=== PATIENT | male | born 2000 | race Caucasian/White ===

== ENCOUNTER 2023-05-04 14:32 | Emergency (ER) | payer OTHER, SELFPAY ==
[2023-05-04 15:28] VITALS: BP 134/90; PULSE 94; RESP 18; TEMP 37.3; O2SAT 98; BMI 24.6
--- NOTE | 2023-05-04 15:28 | ED.GENADULT ---
HPI - General Adult General Chief complaint: General Medical Stated complaint: fatigue / low heart rate Time Seen by Provider: 05/04/23 18:16 Source: patient Mode of arrival: ambulatory Limitations: no limitations History of Present Illness HPI narrative: Patient with history of anxiety complaining of dizziness palpitations off and on feels foggy in his mind had this symptoms going on for a while but now getting worse. Patient's sister has bipolar disorder. Denies any SI no hallucination or delusion Related Data Previous Rx's Medication Instructions Recorded fluoxetine 10 mg capsule (Prozac) 10 mg PO DAILY #30 caps 05/04/23 hydroxyzine HCl 50 mg tablet 50 mg PO BID PRN anxiety #60 tabs 05/04/23 trazodone 100 mg tablet 100 mg PO BEDTIME PRN sleep #30 05/04/23 tabs Allergies Allergy/AdvReac Type Severity Reaction Status Date / Time No Known Allergies Allergy Verified 05/04/23 15:28 Review of Systems Review of Systems: Yes all other systems are reviewed and are negative FOR[facility]LY [facility] Social History Social History Smoked in Last 30 Days: No Use of substances other than those prescribed or required for medical reasons: No Advance Directives: No Advance Directives Information Provided: No Physical Exam ED Vital Signs: Vital Signs - 24 hr 05/04/23 15:28 Temperature 99.2 F Pulse Rate 94 Respiratory Rate 18 Blood Pressure 134/90 H Pulse Oximetry 98 Oxygen Delivery Method Room Air BMI result Body Mass Index 24.6 Appearance: Alert. Oriented X3. No acute distress. Eyes: PERRLA, No Nystagmus ENT: Pharynx normal. Oral Mucosa moist Neck: Normal inspection. Neck supple. CVS: Normal heart rate and rhythm. Pulses normal. Respiratory: No respiratory distress. Equal air entry bilateral, no wheezing/rales/rhonchi Abdomen: Soft and nontender. Bowel sounds are present, no mass palpable, no CVA tenderness Skin: Skin warm and dry. Normal skin color. Normal skin turgor. Extremities: No lower extremity edema. No calf tenderness psych mood stable denies any SI no hallucination/ delusion Neuro: Oriented X 3. No motor deficit. No sensory deficit.No cerebellar signs , cranial nerves II-XII intact Course Course Course Narrative: This is an RME: Additional HPI, ROS, PE not included below will be deferred to primary provider. This is a 48-gcpb-ywm-male, asthma and anxiety, presenting to the emergency department with a complaints of fatigue, low heart rate, brain fogginess x 1 week. Lives in [place], has a ?spider bite on right side of body. VSS. Plan: Labs, TSH, monospot Medications Administered Discontinued Medications Generic Name Dose Route Start Last Admin Trade Name Freq PRN Reason Stop Dose Admin Alprazolam 0.5 mg 05/04/23 18:30 05/04/23 18:43 Alprazolam 0.5 Mg Tablet PO 05/04/23 18:31 0.5 mg ONCE ONE Administration Medical Decision Making Medical Decision Making [facility] Narrative: Patient advised to follow-up with psychiatrist will give a course of prozac and hydroxyzine and trazodone for sleep Differential Diagnosis Differential Diagnoses: The differential diagnosis associated with the presentation includes Major depression/bipolar/ADHD Lab Data 05/04/23 15:51 05/04/23 15:51 Labs: Lab Results 05/04/23 05/04/23 05/04/23 Range/Units 15:51 15:51 15:51 WBC (4.8-10.8) X10*3/uL RBC (4.60-5.80) X10*6/uL Hgb (14.0-18.0) g/dl Hct (42.0-52.0) % MCV (80.0-98.0) fL MCH (27.0-33.0) pg MCHC (31.0-36.0) g/dl RDW (11.0-16.0) % Plt Count (160-400) X10*3/uL MPV (9.4-12.4) fL Immature Gran % (Auto) (0.0-0.4) % Neut % (Auto) (45-73) % Lymph % (Auto) (20-40) % Wilcox % (Auto) (2-11) % Eos % (Auto) (0-4) % Baso % (Auto) (0-2) % Lymph # (Auto) (1.2-4.9) X10*3/uL Wilcox # (Auto) (0.1-1.2) X10*3/uL Eos # (Auto) (0.0-0.4) X10*3/uL Baso # (Auto) (0.0-0.2) X10*3/uL Abs Immat Gran (auto) (0.00-0.03) X10*3/uL Absolute Neuts (auto) (2.0-8.3) x10*3/uL Absolute Nucleated RBC (0.0-0.012) X10*3/uL Nucleated RBC % (auto) (0.0-0.2) /100WBC Sodium 139 (135-145) mmol/L Potassium 4.1 (3.3-5.1) mmol/L Chloride 104 (96-108) mmol/L Carbon Dioxide 25 (22-29) mmol/L Anion Gap 14 (12-20) BUN 11 (9-16) mg/dL Creatinine 0.78 (0.5-1.4) mg/dL Estim Creat Clear Calc 144.9 Estimated GFR > 60 Random Glucose 116 H (60-115) mg/dL Calcium 10.7 H (8.4-10.2) mg/dL Total Bilirubin 0.6 (0.0-1.0) mg/dL Direct Bilirubin 0.3 (0.0-0.5) mg/dL AST 21 (5-37) U/L ALT 27 (0-40) U/L Alkaline Phosphatase 83 (39-117) U/L Total Protein 8.4 H (6.5-8.0) g/dL Albumin 5.0 (3.5-5.0) g/dL TSH 1.36 (0.32-4.0) uIU/mL Lyme Screen IgG & IgM <0.90 index Monoscreen Negative (Negative) 05/04/23 Range/Units 15:51 WBC 7.3 (4.8-10.8) X10*3/uL RBC 5.78 (4.60-5.80) X10*6/uL Hgb 16.8 (14.0-18.0) g/dl Hct 50.2 (42.0-52.0) % MCV 86.9 (80.0-98.0) fL MCH 29.1 (27.0-33.0) pg MCHC 33.5 (31.0-36.0) g/dl RDW 13.3 (11.0-16.0) % Plt Count 318 (160-400) X10*3/uL MPV 9.9 (9.4-12.4) fL Immature Gran % (Auto) 0.3 (0.0-0.4) % Neut % (Auto) 71.4 (45-73) % Lymph % (Auto) 20.6 (20-40) % Wilcox % (Auto) 6.1 (2-11) % Eos % (Auto) 0.8 (0-4) % Baso % (Auto) 0.8 (0-2) % Lymph # (Auto) 1.5 (1.2-4.9) X10*3/uL Wilcox # (Auto) 0.4 (0.1-1.2) X10*3/uL Eos # (Auto) 0.1 (0.0-0.4) X10*3/uL Baso # (Auto) 0.1 (0.0-0.2) X10*3/uL Abs Immat Gran (auto) 0.02 (0.00-0.03) X10*3/uL Absolute Neuts (auto) 5.2 (2.0-8.3) x10*3/uL Absolute Nucleated RBC 0.000 (0.0-0.012) X10*3/uL Nucleated RBC % (auto) 0.0 (0.0-0.2) /100WBC Sodium (135-145) mmol/L Potassium (3.3-5.1) mmol/L Chloride (96-108) mmol/L Carbon Dioxide (22-29) mmol/L Anion Gap (12-20) BUN (9-16) mg/dL Creatinine (0.5-1.4) mg/dL Estim Creat Clear Calc Estimated GFR Random Glucose (60-115) mg/dL Calcium (8.4-10.2) mg/dL Total Bilirubin (0.0-1.0) mg/dL Direct Bilirubin (0.0-0.5) mg/dL AST (5-37) U/L ALT (0-40) U/L Alkaline Phosphatase (39-117) U/L Total Protein (6.5-8.0) g/dL Albumin (3.5-5.0) g/dL TSH (0.32-4.0) uIU/mL Lyme Screen IgG & IgM index Monoscreen (Negative) Discharge Plan Discharge Clinical Impression: Anxiety disorder Patient Disposition: Home, Self-Care Instructions: Generalized Anxiety Disorder (ED) Additional Instructions: Take medication as prescribed and follow-up with your PCP for further evaluation including psych evaluation Prescriptions: New fluoxetine [Prozac] 10 mg capsule 10 mg PO DAILY Qty: 30 0RF trazodone 100 mg tablet 100 mg PO BEDTIME PRN (Reason: sleep) Qty: 30 0RF hydroxyzine HCl 50 mg tablet 50 mg PO BID PRN (Reason: anxiety) Qty: 60 0RF Referrals: Kris Meeks MD [Physician] - 1 week Interventions: ED Discharge Assessment Last Done: 05/04/23 18:55 Discharge Date/Time: 05/04/23 18:55
[2023-05-04 15:55] LABS: MANUAL DIFF FLAG NO
[2023-05-04 16:01] LABS: Basophils Absolute Auto 0.1 X10*3/uL (0.0-0.2); Basophils Percent Auto 0.8 % (0-2); Eosinophils Absolute Auto 0.1 X10*3/uL (0.0-0.4); Eosinophils Percent Auto 0.8 % (0-4); Hematocrit 50.2 % (42.0-52.0); Hemoglobin 16.8 g/dl (14.0-18.0); Imm Gran Abs Auto 0.02 X10*3/uL (0.00-0.03); Imm Gran Pct Auto 0.3 % (0.0-0.4); Lymphocytes Absolute Auto 1.5 X10*3/uL (1.2-4.9); Lymphocytes Percent Auto 20.6 % (20-40); Mean Corpuscular HGB Conc 33.5 g/dl (31.0-36.0); Mean Corpuscular Hemoglobin 29.1 pg (27.0-33.0); Mean Corpuscular Volume 86.9 fL (80.0-98.0); Mean Platelet Volume 9.9 fL (9.4-12.4); Monocytes Absolute Auto 0.4 X10*3/uL (0.1-1.2); Monocytes Percent Auto 6.1 % (2-11); Neutrophils Absolute Auto 5.2 x10*3/uL (2.0-8.3); Neutrophils Percent Auto 71.4 % (45-73); Platelet Count 318 X10*3/uL (160-400); Red Blood Count 5.78 X10*6/uL (4.60-5.80); Red Cell Distribution Width 13.3 % (11.0-16.0); White Blood Count 7.3 X10*3/uL (4.8-10.8)
[2023-05-04 16:11] LABS: Monotest Negative (Negative)
[2023-05-04 16:26] LABS: Alanine Aminotransferase 27 U/L (0-40); Alkaline Phosphatase 83 U/L (39-117); Anion Gap 14 (12-20); Aspartate Amino Transferase 21 U/L (5-37); Bilirubin Direct 0.3 mg/dL (0.0-0.5); Bilirubin Total 0.6 mg/dL (0.0-1.0); Blood Urea Nitrogen 11 mg/dL (9-16); Calcium 10.7 mg/dL (8.4-10.2); Carbon Dioxide 25 mmol/L (22-29); Chloride 104 mmol/L (96-108); Creatinine Clr Calc Pharmacy 144.9; Estimated Glomerular Filt Rate > 60; Glucose Random 116 mg/dL (60-115); Potassium 4.1 mmol/L (3.3-5.1); Sodium 139 mmol/L (135-145); Total Protein 8.4 g/dL (6.5-8.0)
[2023-05-04 16:41] LABS: TSH reflex Free T4 1.36 uIU/mL (0.32-4.0)
[2023-05-04 18:18] VITALS: BP 150/90; PULSE 94; RESP 16; O2SAT 98
--- OUTSIDE RECORDS SUMMARY | 2023-05-04 18:20 | XMS_ITS | Continuity of Care Document ---
Author Name Unknown Organization [facility] Address [address] [place] [id number]- Care Team Providers Care Blower Room Attendant Name Role Phone Not on Staff, PCP Primary Care Physician Unavail able Encounter [facility] [place] Date(s): 11/21/20 - 11/22/[address] [address]- Encounter Diagnosis Headache, common migraine(Final) - 11/21/20 Discharge Disposition: A-D/C Home Attending Physician: Dallas Aldridge MD Admitting Physician: Dallas Aldridge MD Referring Physician: Not on Staff, Referring MD Allergies, Adverse Reactions, Alerts Substance Reaction Severity Status NKA Active Medications Acetaminophen Tablet 650 mg, Tablet, By Mouth, Once, STAT, 11/21/20 18:08:00 EST, Stop date 11/21/20 18:08:00 EST Start Date: 11/21/20 Stop Date: 11/21/20 Status: Completed Albuterol 0 Refills, Maintenance Start Date: 10/10/12 Status: Ordered amoxicillin 500 mg oral tablet 2 tablet = 1,000 mg, By Mouth, 2 times a day, # 28 tablet, 0 Refills, Maintenance, Tablet Start Date: 04/19/10 Stop Date: 04/26/10 Status: Ordered Cortisporin Otic 1%-0.35%-97834 u/ml solution 2 drops, Ears, Both, 4 times a day, # 10 mL, 0 Refills, Maintenance, Solution Start Date: 04/19/10 Stop Date: 04/26/10 Status: Ordered Crutches Crutches, See Instructions, # 1 units, Refills 0, Tot. Refills 0, Maintenance, Crutches, 10/10/12 20:42:05 Start Date: 10/10/12 Status: Ordered ibuprofen 400 mg oral tablet 400 mg, 1, tablet, By Mouth, Every 6 hours, PRN, # 30 tablet, Refills 0, Tot. Refills 0, Maintenance, Pain , Moderate, 01/28/19 19:14:06 EDT, Print Requisition Start Date: 01/28/19 Status: Ordered Motrin Tablet 400 mg, Tablet, By Mouth, Once, STAT, 11/21/20 18:08:00 EST, Stop date 11/21/20 18:08:00 EST Start Date: 11/21/20 Stop Date: 11/21/20 Status: Completed Symbicort 160mcg/4.5mcg Inhaler 2 puffs, Inhalation, 2 times a day, # 10.2 Gm, 0 Refills, Maintenance, Aerosol Start Date: 10/10/12 Status: Ordered Problem List Condition Effective Dates Status Health Status Inform ant Ocular migraine(Confirmed) Active Vital Signs Most recent to oldest [Reference Range]: 1 2 3 4 Height 173 cm (11/21/20 10:44 PM) 173 cm (11/21/20 8:41 PM) 173 cm (11/21/20 3:38 PM) Weight 64.5 kg (11/21/20 10:44 PM) 64.5 kg (11/21/20 8:41 PM) 64.5 kg (11/21/20 3:38 PM) Oxygen Saturation [94-100 %] 99 % (11/21/20 10:44 PM) 100 % (11/21/20 8:41 PM) 100 % (11/21/20 6:08 PM) Pulse Rate [55-90 bpm] 85 bpm (11/21/20 10:44 PM) 100 bpm *H* (11/21/20 8:41 PM) 106 bpm *H* (11/21/20 6:08 PM) Body Mass Index [18.5-24.99] 21.55 (11/21/20 10:44 PM) 21.55 (11/21/20 8:41 PM) 21.55 (11/21/20 3:38 PM) Blood Pressure [90-138/55-84 mm Hg] 126/71mm Hg (11/21/20 10:44 PM) 128/71mm Hg (11/21/20 8:41 PM) 147/80mm Hg *H* (11/21/20 6:08 PM) Respiratory Rate [16-30 br/min] 18 br/min (11/21/20 10:44 PM) 18 br/min (11/21/20 8:41 PM) 20 br/min (11/21/20 7:09 PM) 20 br/min (11/21/20 7:09 PM) Temperature [96.8-100.4 DegF] 97.8 DegF (11/21/20 10:44 PM) 97.9 DegF (11/21/20 8:41 PM) 98.1 DegF (11/21/20 6:08 PM) Mode of Delivery (Oxygen) Room air (11/21/20 10:44 PM) Room air (11/21/20 8:41 PM) Room air (11/21/20 6:08 PM) Blood pressure sites Arm, right (11/21/20 10:44 PM) Arm, left (11/21/20 8:41 PM) Arm, right (11/21/20 6:08 PM) Temperature Route Oral (11/21/20 10:44 PM) Oral (11/21/20 8:41 PM) Oral (11/21/20 6:08 PM) Dry Weight 64.5 kg (11/21/20 10:44 PM) 64.5 kg (11/21/20 8:41 PM) 64.5 kg (11/21/20 3:38 PM) Weight Obtained Via Patient/family stated (11/21/20 3:38 PM) Dry Weight Obtained Via Patient/family stated (11/21/20 3:38 PM) Social History Social History Type Response Smoking Status Never smoker; Tobacc o user in household: No entered on: 06/17/18 Sex
--- OUTSIDE RECORDS SUMMARY | 2023-05-04 18:20 | XMS_ITS | Continuity of Care Document ---
Author Name Unknown Organization [facility] Address [address] [place] [address]- Care Team Providers Care Regional Ehs Manager Name Role Phone Shaniqua STEELE, Higinio Primary Care Physician [place] [facility] [place] - [place]/22 [facility] [address] [place], [place] [address] Allergies, Adverse Reactions, Alerts No Known Allergies Immunizations Given and Recorded Vaccine Date Status Refusal Reason SARS-CoV-2 (COVID-19) mRNA-1967 vaccine 1 08/12/21 Recorded 1Result Comment: Booster Medications Albuterol 0 Refills, Maintenance Start Date: 10/10/12 Status: Ordered amoxicillin 500 mg oral tablet 2 tablet = 1,000 mg, By Mouth, 2 times a day, # 28 tablet, 0 Refills, Maintenance, Tablet Start Date: 04/19/10 Stop Date: 04/26/10 Status: Ordered Cortisporin Otic 1%-0.35%-29364 u/ml solution 2 drops, Ears, Both, 4 times a day, # 10 mL, 0 Refills, Maintenance, Solution Start Date: 04/19/10 Stop Date: 04/26/10 Status: Ordered Crutches Crutches, See Instructions, # 1 units, Refills 0, Tot. Refills 0, Maintenance, Crutches, 10/10/12 20:42:05 Start Date: 10/10/12 Status: Ordered fluticasone 50 mcg/inh nasal spray Daily, 0 Refills, Maintenance, 01/27/22 9:32:00 EDT, Partial fill upon patient request if the prescription is for a schedule II opioid drug. Start Date: 01/27/22 Status: Ordered hydrOXYzine hydrochloride 25 mg oral tablet 0 Refills, Maintenance, 01/27/22 9:31:00 EDT, Partial fill upon patient request if the prescriptionis for a schedule II opioid drug. Start Date: 01/27/22 Status: Ordered ibuprofen 400 mg oral tablet 400 mg, 1, tablet, By Mouth, Every 6 hours, PRN, # 30 tablet, Refills 0, Tot. Refills 0, Maintenance, Pain , Moderate, 01/28/19 19:14:06 EDT, Print Requisition Start Date: 01/28/19 Status: Ordered loratadine 10 mg oral tablet 10 mg, 1, tablet, By Mouth, Daily, Refills 0, Maintenance, 01/27/22 9:32:00 EDT, Partial fill upon patient request if the prescription is for a schedule II opioid drug. Start Date: 01/27/22 Status: Ordered naproxen 375 mg oral tablet Refills 0, Maintenance, 01/27/22 9:31:00 EDT, Partial fill upon patient request if the prescriptionis for a schedule II opioid drug. Start Date: 01/27/22 Status: Ordered olanzapine 10 mg oral tablet Refills 0, Maintenance, 01/27/22 9:31:00 EDT, Partial fill upon patient request if the prescriptionis for a schedule II opioid drug. Start Date: 01/27/22 Status: Ordered ProAir HFA Inhalation, Every 6 hours, 0 Refills, Maintenance, 01/27/22 9:32:00 EDT, Partial fill upon patient request if the prescription is for a schedule II opioid drug. Start Date: 01/27/22 Status: Ordered QUEtiapine 25 mg oral tablet Refills 0, Maintenance, 01/27/22 9:31:00 EDT, Partial fill upon patient request if the prescriptionis for a schedule II opioid drug. Start Date: 01/27/22 Status: Ordered risperiDONE 1 mg oral tablet TAKE 1 TABLET BY MOUTH AT BEDTIME Start Date: 01/27/22 Status: Ordered sertraline 50 mg oral tablet TAKE 1 TABLET BY MOUTH EVERY DAY Start Date: 01/27/22 Status: Ordered Symbicort 160mcg/4.5mcg Inhaler 2 puffs, Inhalation, 2 times a day, # 10.2 Gm, 0 Refills, Maintenance, Aerosol Start Date: 10/10/12 Status: Ordered Symbicort 160mcg/4.5mcg Inhaler 2, puffs, Inhalation, 2 times a day, Refills 0, Maintenance, 01/27/22 9:32:00 EDT Start Date: 01/27/22 Status: Ordered traZODone 50 mg oral tablet TAKE 1 TABLET BY MOUTH AT BEDTIME Start Date: 01/27/22 Status: Ordered Problem List Condition Effective Dates Status Health Status Inform ant Ocular migraine(Confirmed) Active Social History Social History Type Response Smoking Status Never smoker; Tobacc o user in household: No entered on: 06/17/18 Sex
--- OUTSIDE RECORDS SUMMARY | 2023-05-04 18:20 | XMS_ITS | Continuity of Care Document ---
Author Name Unknown Organization [facility] Address [address] [place] [address]- Care Team Providers Care Gas Plumber Name Role Phone Higinio Mcgovern MD Primary Care Physician [phone] Encounter [facility] [place] Date(s): 06/26/22 - 07/03/22 [facility] [address] [place], [place] [address] Encounter Diagnosis Generalized anxiety disorder(Discharge Diagnosis) - 06/26/22 Depression(Discharge Diagnosis) - 06/26/22 Ocular migraine(Discharge Diagnosis) - 06/26/22 Asthma(Discharge Diagnosis) - 06/30/22 Attending Physician: Pasha Martinez Allergies, Adverse Reactions, Alerts No Known Allergies Immunizations Given and Recorded Vaccine Date Status Refusal Reason SARS-CoV-2 (COVID-19) mRNA-1273 vaccine 1 08/12/21 Recorded SARS-CoV-2 (COVID-19) mRNA-1273 vaccine 01/24/21 R ecorded SARS-CoV-2 (COVID-19) mRNA-1273 vaccine 12/27/20 R ecorded Meningococcal Conjugate Vaccine 08/10/18 Recorded Meningococcal Conjugate Vaccine 05/23/14 Recorded Human Papillomavirus Vaccine 01/23/16 Recorded Human Papillomavirus Vaccine 09/19/15 Recorded Human Papillomavirus Vaccine 07/02/15 Recorded influenza virus vaccine, inactivated 05/23/14 Angus rded influenza virus vaccine, inactivated 06/17/10 Angus rded influenza virus vaccine, inactivated 06/04/09 Angus rded influenza virus vaccine, inactivated 07/10/08 Angus rded influenza virus vaccine, inactivated 07/23/07 Angus rded influenza virus vaccine, inactivated 07/08/06 Angus rded influenza virus vaccine, inactivated 06/26/05 Angus rded Varicella Virus Vaccine 04/11/13 Recorded Varicella Virus Vaccine 11/10/02 Recorded tetanus/diphtheria/pertussis, acel(Tdap) 04/11/13 Recorded Poliovirus Vaccine, Inactivated 12/30/05 Recorded Poliovirus Vaccine, Inactivated 09/21/02 Recorded Poliovirus Vaccine, Inactivated 03/03/02 Recorded Poliovirus Vaccine, Inactivated 01/05/02 Recorded Measles/Mumps/Rubella Virus Vaccine 12/30/05 Recor ded Measles/Mumps/Rubella Virus Vaccine 03/15/03 Recor ded diphtheria/tetanus/pertussis, acel(DTaP) 12/30/05 Recorded diphtheria/tetanus/pertussis, acel(DTaP) 03/15/03 Recorded diphtheria/tetanus/pertussis, acel(DTaP) 05/04/02 Recorded diphtheria/tetanus/pertussis, acel(DTaP) 03/03/02 Recorded diphtheria/tetanus/pertussis, acel(DTaP) 01/05/02 Recorded hepatitis B pediatric vaccine 09/21/02 Recorded hepatitis B pediatric vaccine 01 Recorded hepatitis B pediatric vaccine 01 Recorded 1Result Comment: Booster Medications fluticasone 50 mcg/inh nasal spray Daily, 0 Refills, Maintenance, 01/27/22 9:32:00 EDT, Partial fill upon patient request if the prescription is for a schedule II opioid drug. Start Date: 01/27/22 Status: Ordered loratadine 10 mg oral tablet [...] opioid drug. Start Date: 01/27/22 Status: Ordered Symbicort 160mcg/4.5mcg Inhaler 2, puffs, Inhalation, 2 times a day, Refills 0, Maintenance, 01/27/22 9:32:00 EDT Start Date: 01/27/22 Status: Ordered Problem List Condition Confirmation Course Effective Dates Status Health St atus Informant Asthma Confirmed Active Depression Confirmed Active Generalized anxiety disorder Confirmed Active Ocular migraine Confirmed Active Diagnosis Diagnosis Type Effective Dates Health Status Clinical Service Informant Generalized anxiety disorder Discharge Diagnosis 06/26/22 Depression Discharge Diagnosis 06/26/22 Ocular migraine Discharge Diagnosis 06/26/22 Asthma Discharge Diagnosis 06/30/22 Procedures Procedure Date Related Diagnosis Body Site Status No prior surgical history Completed Vital Signs Most recent to oldest [Reference Range]: 1 Height 172.5 cm (06/26/22 9:08 AM) Weight 77.1 kg (06/26/22 9:08 AM) Oxygen Saturation [94-100 %] 97 % (06/26/22 9:08 AM) Pulse Rate [55-90 bpm] 85 bpm (06/26/22 9:08 AM) Body Mass Index [18.5-24.99 kg/m2] 25.91 kg/m2 *H* (06/26/22 9:08 AM) Blood Pressure [90-138/55-84 mm Hg] 132/ 74mm Hg (06/26/22 9:08 AM) Respiratory Rate [16-30 br/min] 18 br/mi n (06/26/22 9:08 AM) Temperature [96.8-100.4 DegF] 98.3 DegF (06/26/22 9:08 AM) Mode of Delivery (Oxygen) Room air (06/26/22 9:08 AM) Blood pressure sites Arm, left (06/26/22 9:08 AM) Temperature Route Temporal (06/26/22 9:08 AM) Weight Obtained Via Standing scale (06/26/22 9:08 AM) Social History Social History Type Response Smoking Status Never smoker; Tobacc o user in household: No entered on: 06/17/18 Sex Patient Care team information Personnel Name: Higinio Mcgovern MD Address: Address: [address] [place], [place] [address]
--- OUTSIDE RECORDS SUMMARY | 2023-05-04 18:20 | XMS_ITS | Continuity of Care Document ---
Author Name Unknown Organization [facility] Address [address] [place] [address]- Care Team Providers Care Senior Database Engineer Name Role Phone Higinio Mcgovern MD Primary Care Physician Encounter [facility] Date(s): 09/04/22 - 09/11/22 [facility] [address] [place], [place] [address] Encounter Diagnosis Asthma(Discharge Diagnosis) - 09/06/22 History of depression(Discharge Diagnosis) - 09/06/22 Attending Physician: Higinio Mcgovern MD Allergies, Adverse Reactions, Alerts No Known Allergies [...] 2, puffs, Inhalation, 2 times a day, # 3 each, Refills 2, Tot. Refills 2, Maintenance, 09/04/22 11:10:00 EST, Inhaler, Route to Pharmacy Electronically, [id number], [facility]/pharmacy #[id number], 172.5, cm, 09/04/22 10:57:00 EST, Height... Start Date: 09/04/22 Status: Ordered tiotropium 2.5 mcg/inh inhalation aerosol 2 puffs, Inhalation, Daily, # 4 Gm, 1 Refills, Maintenance, 09/04/22 11:10:00 EST, Aerosol, [id number], Partial fill upon patient request if the prescription is for a schedule II opioid drug., 172.5, cm, 09/04/22 10:57:00 EST, Height, 64.5, kg... Start Date: 09/04/22 Status: Ordered Problem List Condition Confirmation Course Effective Dates Status Health St [facility] Informant Asthma Confirmed Active Generalized anxiety disorder Confirmed Active History of depression Confirmed Active Ocular migraine Confirmed Active Diagnosis Diagnosis Type Effective Dates Health Status Clinical Service Informant Asthma Discharge Diagnosis 09/06/22 History of depression Discharge Diagnosis 09/06/22 Vital Signs Most recent to oldest [Reference Range]: 1 Height 172.5 cm (09/04/22 10:57 AM) Weight 75.7 kg (09/04/22 10:57 AM) Oxygen Saturation [94-100 %] 97 % (09/04/22 10:57 AM) Pulse Rate [55-90 bpm] 88 bpm (09/04/22 10:57 AM) Body Mass Index [18.5-24.99 kg/m2] 25.44 kg/m2 *H* (09/04/22 10:57 AM) Blood Pressure [90-138/55-84 mm Hg] 112/ 74mm Hg (09/04/22 10:57 AM) Blood pressure sites Arm, left (09/04/22 10:57 AM) Social History Social History Type Response Smoking Status Never smoker; Tobacc o user in household: No entered on: 06/17/18 Sex Note * Leonarda Wiseman: PERFORM, SIGN, VERIFY Event Display: Patient Education/Instruction Authored Date: [id number] [facility] *[facility] Clinical Summary Name WILL RUGGIERO Age 21 Years 2000 PCP Higinio Mcgovern MD PCP Visit Date 09/04/2022 10:40:00 Additional Instructions: Scheduled Appointments?? Future Appointments ?No Future Appointments Scheduled Follow-Up Instructions ?? Diagnosis Medications: Please continue your medications until treatment is completed or stopped by your provider. Discuss any questions related to medications with your provider. New Medications [facility]/pharmacy #[id number], [address], [place] [phone], [phone] Tiotropium (tiotropium 2.5 mcg/inh inhalation aerosol) 2 puff(s) Inhalation Daily. Refills: 1. Next Dose: Medications to Continue Taking That Have Changed [id number], [address], [place] [id number], [phone] - Budesonide-Formoterol (Symbicort 160mcg/4.5mcg Inhaler) 2 puff(s) Inhalation twice a day. Refills: 2. Next Dose: Medications to Continue with No Changes These medications were not printed or sent to your pharmacy Albuterol (ProAir HFA) Inhalation every 6 hours. Next Dose: Fluticasone Nasal (fluticasone 50 mcg/inh nasal spray) Daily. Next Dose: Loratadine (loratadine 10 mg oral tablet) 1 tab(s) Oral Daily. Next Dose: Allergy Info:?? NKA Medications Given This Visit Future Orders ?No future orders Vital Signs Height 172.5 cm Weight 75.7 kg BMI 25.44 kg/m2 Blood Pressure 112 mm Hg/74 mm Hg Temperature Pulse Rate 88 bpm Respiratory Rate 02 Sat Mode of Delivery 97 %/ You can now view a summary of your hospital visit from the comfort of your home through a free online portal called [employer]. [employer] is a website that allows you to securely view your medical information including discharge summary, medications and follow-up visits. ??You can alsosend a secure electronic message to your doctor???s office to request appointments, renew medications or just ask a question. You can enroll at [email or web address] or register during your next office visit. Disclaimer:?? The information provided is of a general nature and is intended to be used in conjunction with the recommendations and advice of your health care practitioner. ??Every effort has been made to ensure that the information provided is accurate and complete at the time it is provided to you however, as your needs change, or, as new ??information becomes available, different or additional instructions may be required. If you have questions, please consult with your primary care provider or pharmacist, as appropriate. ??This information is not intended to serve as substitution for assessment and evaluation by a qualified health care provider. If you do not have a primary care provider, you may find a [facility] provider by calling [facility] at [phone]. For information about the plan of care including goals and instructions for your diagnosis, please see the patient education orders section of this document. Patient Education Materials?? The content of this educational material or handout may have been modified, supplemented, or adapted from its original content and format to support your individualized medical care. Patient Care team information Care Team Personnel Name: Higinio Mcgovern MD Position: [facility] Primary Care Physician Member Role: PCP Address: Address: [address] [place] [id number] Name: Luz Stephenson [place] Position: [facility] TIFFANI SANTIAGO Member Role: Lifetime Consulting Physician Care Team Related Persons Name: EVERT RUGGIERO Address: [address] [place] [address] Name: JOEY RUGGIERO Address: [address] [place] [address]
--- OUTSIDE RECORDS SUMMARY | 2023-05-04 18:20 | XMS_ITS | Continuity of Care Document ---
Author Name Unknown Organization [facility] Address [address] [place] [id number]- Care Team Providers Care Camp Tender Name Role Intervention TeacherDg Harris MD Primary Care Physician Encounter [facility] Date(s): 11/15/20 - 11/15/[address] [address]- Encounter Diagnosis Suicidal ideation(Final) - 11/15/20 Depression(Final) - 11/15/20 Discharge Disposition: A-D/C Home Attending Physician: Rekha Miguel MD Admitting Physician: Rekha Miguel MD Referring Physician: Not on Staff, Referring MD Allergies, Adverse Reactions, Alerts Substance Reaction Severity Status NKA Active Medications Albuterol 0 Refills, Maintenance Start Date: 10/10/12 Status: Ordered amoxicillin 500 mg oral tablet 2 tablet = 1,000 mg, By Mouth, 2 times a day, # 28 tablet, 0 Refills, Maintenance, Tablet Start Date: 04/19/10 Stop Date: 04/26/10 Status: Ordered Cortisporin Otic 1%-0.35%-21121 u/ml solution 2 drops, Ears, Both, 4 [...] Print Requisition Start Date: 01/28/19 Status: Ordered Symbicort 160mcg/4.5mcg Inhaler 2 puffs, Inhalation, 2 times a day, # 10.2 Gm, 0 Refills, Maintenance, Aerosol Start Date: 10/10/12 Status: Ordered Problem List Condition Effective Dates Status Health Status Inform ant Ocular migraine(Confirmed) Active Vital Signs Most recent to oldest [Reference Range]: 1 2 3 Height 173 cm (11/15/20 8:11 PM) 173 cm (11/15/20 12:38 PM) 173 cm (11/15/20 12:00 PM) Weight 63.5 kg (11/15/20 8:11 PM) 63.5 kg (11/15/20 12:38 PM) 63.5 kg (11/15/20 12:00 PM) Oxygen Saturation [94-100 %] 100 % (11/15/20 8:11 PM) 100 % (11/15/20 12:00 PM) 100 % (11/15/20 11:51 AM) Pulse Rate [55-90 bpm] 84 bpm (11/15/20 8:11 PM) 102 bpm *H* (11/15/20 12:00 PM) 114 bpm *H* (11/15/20 11:51 AM) Body Mass Index [18.5-24.99] 21.22 (11/15/20 8:11 PM) 21.22 (11/15/20 12:00 PM) Blood Pressure [90-138/55-84 mm Hg] 127/78mm Hg (11/15/20 8:11 PM) 146/85mm Hg *H* (11/15/20 12:00 PM) Respiratory Rate [16-30 br/min] 18 br/min (11/15/20 8:11 PM) 16 br/min (11/15/20 12:00 PM) Temperature [96.8-100.4 DegF] 98.2 DegF (11/15/20 8:11 PM) 97.8 DegF (11/15/20 12:00 PM) Mode of Delivery (Oxygen) Room air (11/15/20 8:11 PM) Room air (11/15/20 12:00 PM) Room air (11/15/20 11:51 AM) Blood pressure sites Arm, left (11/15/20 8:11 PM) Arm, right (11/15/20 12:00 PM) Temperature Route Oral (11/15/20 8:11 PM) Oral (11/15/20 12:00 PM) Dry Weight 63.5 kg (11/15/20 8:11 PM) 63.5 kg (11/15/20 12:38 PM) 63.5 kg (11/15/20 12:00 PM) Weight Obtained Via Patient/family state d (11/15/20 12:00 PM) Dry Weight Obtained Via Patient/family s tated (11/15/20 12:00 PM) Social History Social History Type Response Smoking Status Never smoker; Tobacc o user in household: No entered on: 06/17/18 Sex
[2023-05-04] MEDS: ALPRAZolam 0.5 MG TABLET PO (18:43)
[2023-05-05 20:57] LABS: Lyme Abs Screen <0.90 index
[2023-05-07 21:19] LABS: Babesia IgG <1:64 titer (<1:64); Babesia IgM <1:20 titer (<1:20)
[2023-05-12 15:54] LABS: A. Phagocytophilum Ab IgG <1:64 (<1:64); A. Phagocytophilum Ab IgM <1:20 (<1:20); E. Chaffeensis Ab IgG <1:64 (<1:64); E. Chaffeensis Ab IgM <1:20 (<1:20)
== END 2023-05-04 18:55 | disposition home or self-care (01) ==
PROVIDERS: Physician Assistant Medical; Emergency Provider Internal Medicine; PCP Internal Medicine
DX: F41.1 Generalized anxiety disorder (principal); F43.0 Acute stress reaction; R42 Dizziness and giddiness; R00.2 Palpitations; Z79.899 Other long term (current) drug therapy
CPT/HCPCS: 36415; 80048; 80076; 84443; 85025; 86308; 86617; 86618; 86666; 86753; 99283; 99284